=== PATIENT | female | born 1970 | race Caucasian/White ===

== ENCOUNTER 2021-11-10 18:42 | Emergency (ER) | payer BC ==
[2021-11-10 19:06] VITALS: BP 114/70; PULSE 73; RESP 16; TEMP 98.4
[2021-11-10] MEDS ORDERED: FLUORESCEIN STRIPS 1 MG STRIP RIGHT EYE ONE (20:51)
[2021-11-10] MEDS ORDERED: PROPARACAINE 0.5% OPHTH DROPS 15 ML BTL RIGHT EYE STA (20:51)
--- NOTE | 2021-11-10 20:53 | ED ---
General Adult HPI - General Chief complaint: Eye Problems Stated complaint: rt eye problem Time Seen by Provider: 11/10/21 20:06 Source: patient, RN notes reviewed Mode of arrival: ambulatory Limitations: no limitations - History of Present Illness Initial comments: 51-year-old female presents to the emergency department for evaluation of right eye pain. Patient states her grandson excellently poked her in the eye this afternoon. Reports the eye has been watering continuously and feels irritated like a grain of sand is trapped. Denies any blurry vision or change in vision. States she did not take anything for pain prior to arrival. Does not wear contacts. No other complaints at this time. - Related Data Previous Rx's Medication Instructions Recorded Erythromycin Ophth Oint [Romycin 1 applic RIGHT EYE QID 7 Days #1 gm 11/10/21 Ophth Oint] Allergies Allergy/AdvReac Type Severity Reaction Status Date / Time Sulfa (Sulfonamide Allergy Unknown Verified 11/10/21 19:06 Antibiotics) Review of Systems ROS Statement: Those systems with pertinent positive or pertinent negative responses have been documented in the HPI. ROS Other: All systems not noted in ROS Statement are negative. Past Medical History Past Medical History: No Reported History History of Any Multi-Drug Resistant Organisms: None Reported Past Surgical History: No Surgical Hx Reported Past Psychological History: No Psychological Hx Reported Smoking Status: Current every day smoker Past Alcohol Use History: None Reported Past Drug Use History: Marijuana General Exam Limitations: no limitations (Well-developed, well-nourished female in no acute distress. Initial temperature 98.4, pulse 73, respirations 16, blood pressure 114/70, pulse ox 98% on room air.) General appearance: alert, in no apparent distress Head exam: Present: atraumatic, normocephalic, normal inspection Eye exam: Present: PERRL, EOMI, conjunctival injection. Absent: scleral icterus, periorbital swelling, periorbital tenderness Expanded Eyelids: Normal Inspection: Bilateral Pupils: Regular, Round: Bilateral Sclera/Conjunctival: Normal Inspection: Bilateral Anterior chamber: Normal Inspection: Bilateral Posterior chamber: Deferred: Bilateral Visual acuity (R) = 20/: 40 Visual acuity (L) = 20/: 40 With correction: No IOP (R) in mmH IOP (L) in mmH IOP measured with: Tonopen ENT exam: Present: normal exam, normal oropharynx, mucous membranes moist Respiratory exam: Present: normal lung sounds bilaterally. Absent: respiratory distress, wheezes, rales, rhonchi, stridor, chest wall tenderness Cardiovascular Exam: Present: regular rate, normal rhythm, normal heart sounds. Absent: systolic murmur, diastolic murmur, rubs, gallop, clicks GI/Abdominal exam: Present: soft, normal bowel sounds. Absent: distended, tenderness, guarding, rebound, rigid Neurological exam: Present: alert, oriented X3, CN II-XII intact Psychiatric exam: Present: normal affect, normal mood Skin exam: Present: warm, dry, intact, normal color. Absent: rash Course Vital Signs 11/10/21 19:03 Temperature 98.4 F Pulse Rate 73 Respiratory 16 Rate Blood Pressure 114/70 O2 Sat by Pulse 98 Oximetry - Reevaluation(s) Reevaluation #1: 11/10/21 21:00 Alcaine instilled into right eye. Fluorescein stain applied. Small focal area of uptake was noted. Erythromycin eye ointment will be ordered and patient will be instructed to follow-up with ophthalmology for recheck. Medical Decision Making - Medical Decision Making 51-year-old female with no significant past medical history presents to the emergency department for evaluation of injury to the right eye. Upon exam, patient is well-appearing and in no acute distress. She does complain of right eye irritation with constant tearing. States she was poked in the eye by her son prior to arrival. Small corneal abrasion was identified using fluorescein stain and wood's lamp. IOP is within normal limits. Visual acuity is 20/40 bilaterally with no corrective lenses. Patient is not experiencing any vision changes. Erythromycin eye ointment was applied. Patient is instructed to follow up with ophthalmology for a recheck. Return parameters discussed in detail. Patient verbalizes understanding and agrees with this plan. Attending:Joyce. Disposition Clinical Impression: Corneal abrasion, right Disposition: HOME SELF-CARE Condition: Stable Instructions (If sedation given, give patient instructions): Corneal Abrasion (ED) Additional Instructions: Avoid rubbing your eyes. Wash your hands prior to applying eye ointment. Apply eye ointment 4-6 times daily for the next 7 days. May take Tylenol or Motrin if needed for pain or discomfort. Call the supervisor properties in the morning to schedule follow-up appointment for Monday or Monday. Return to the emergency department with any new, worsening, or concerning symptoms. Prescriptions: Erythromycin Ophth Oint [Romycin Ophth Oint] 1 applic RIGHT EYE QID 7 Days #1 gm Is patient prescribed a controlled substance at d/c from ED?: No Referrals: None,Stated [Primary Care Provider] - 1-2 days Lei Cheng MD [STAFF PHYSICIAN] - 1-2 days Srinivasan Richardson DO [Doctor of Osteopathic Medicine] - 1-2 days Time of Disposition: 21:35
[2021-11-10] MEDS ORDERED: ERYTHROMYCIN 5 MG/GM OPHTH OINT 3.5 GM TUBE RIGHT EYE STA (21:30)
== END 2021-11-10 21:46 | disposition home or self-care (01) ==
LOC: EC 18:42
DX: S05.01XA Injury of conjunctiva and corneal abrasion without foreign body, right eye, initial encounter (principal); F17.200 Nicotine dependence, unspecified, uncomplicated; Z88.2 Allergy status to sulfonamides; W51.XXXA Accidental striking against or bumped into by another person, initial encounter
CPT/HCPCS: 99283

== ENCOUNTER → 2024-08-02 | Outpatient (CLI) | payer BC ==
--- NOTE | 2024-08-02 12:30 | USB ---
Reason for Exam: Clinical finding. Risk Values: Naima 5 year model risk: 0.8%. NCI Lifetime model risk: 5.3%. Technique: Method: Whole Breast Handheld. Findings: The whole breast of the left breast, the area of palpable concern of the left breast, the axilla of the left breast and the retroareolar of the left breast were scanned. Electronically signed and approved by: Shubham Limon DO
--- NOTE | 2024-08-02 12:59 | P.GSCN ---
History of Present Illness Consult date: 08/02/24 Reason for Consult: mass left breast Requesting physician: Gurdeep Cormier III History of present illness: Krystina is a 54 year old female who is seen in consultation for Dr. Cormier regarding a left breast mass. She had a left breast lumpectomy in 2004 and then notes the lump returned in 2010. She states the lumpectomy in 2004 was non cancer. Her last mammogram was in 2004. She states that the lump is painful if anything touches it. It does not drain. Here in this area of she denies any fever or chills. She has not had any recent trauma or infection in her breast. She is seen with her finace. Caffeine: 4 shots espresso/day and coffee at night, also coke nicotine: 1 PPD for 40 years chocolate: daily BCP; for polycystic disease, used for about 4 years hormones: none Family History: maternal grandmother: lung cancer patient and sister: abnormal cervical cells had cryosurgery Hormonal History: menarche: 10 M2 age at first : 19, breat fed: no menopause: 53 Surgical history: cryo-ablation of cervix left breast lumpectomy done at [facility] Medical History: decreased hearing hypothyroid Social History: nicotine: a PPD alcohol: none drugs: marijuana daily Review of Systems - Constitutional Reports sweats - EENT Eyes: denies blurred vision Ears: left: decreased hearing Ears, nose, mouth and throat: Denies dysphagia - Breasts bilateral: as per HPI - Cardiovascular Denies chest pain, Denies shortness of breath - Respiratory Reports cough - Gastrointestinal Reports as per HPI - Genitourinary Genitourinary: Denies dysuria, Denies hematuria Menstruation: Reports postmenopausal - Musculoskeletal Reports as per HPI - Integumentary Integumentary Comment(s): itching inside left breast Denies rash, Denies unusual bruising - Neurological Denies headaches, Denies syncope - Psychiatric Reports anxiety - Endocrine Reports as per HPI, Reports weight change - Hematologic/Lymphatic Denies easy bleeding, Denies easy bruising - Allergic/Immunologic Reports as per HPI Past Medical History Past Medical History: No Reported History History of Any Multi-Drug Resistant Organisms: None Reported Past Surgical History: No Surgical Hx Reported Past Psychological History: No Psychological Hx Reported Smoking Status: Current every day smoker Past Alcohol Use History: None Reported Past Drug Use History: Marijuana Medications and Allergies Home Medications Medication Instructions Recorded Confirmed Type Erythromycin Ophth Oint [Romycin 1 applic RIGHT EYE QID 7 Days #1 gm 11/10/21 Rx Ophth Oint] Allergies Allergy/AdvReac Type Severity Reaction Status Date / Time Sulfa (Sulfonamide Allergy Unknown Verified 11/10/21 19:06 Antibiotics) Surgical - Exam - General moderate distress - Eyes normal ocular movement - Neck trachea midline - Respiratory normal respiratory effort, clear to auscultation - Cardiovascular Heart Sounds: normal: S1, S2 - Abdomen Abdomen: soft, non tender, no guarding, no rigid, no rebound - Integumentary normal turgor - Neurologic no disoriented, no combative - Musculoskeletal normal gait - Psychiatric oriented to time, oriented to person, oriented to place, speech is normal, memory intact Breast Exam: BRA: 36B Inspection: Mass left breast upper outer quadrant approximately 10 x 8 cm in size with some growth through the skin of the breast, bilateral grade 2 ptosis Palpation: Right breast: Multi positional exam no dominant masses or nodules of concern, right axilla: Shotty adenopathy nonworrisome Left breast: Multi positional exam mass left breast upper outer quadrant approximately 10 x 8 cm it is not fixed it is got some extension through the skin and may have some necrotic tissue associated with it is very firm Left axilla: Positive adenopathy but small and freely mobile Results Ultrasound performed personally reviewed of the left breast Assessment and Plan Assessment: Impression: Mass left breast Fibrocystic breast changes bilateral infected tumor vs. abscess Plan: Ultrasound-guided core biopsy lesion left breast Follow-up after ultrasound-guided core biopsy CC: Dr. Cormier
[2024-08-02 13:32] VITALS: BP 113/69; PULSE 73; RESP 17; TEMP 97.9
== END | disposition home or self-care (01) ==
LOC: RADUSWWP 11:55
PROVIDERS: ATTEND Surgery
DX: N60.11 Diffuse cystic mastopathy of right breast (principal); N60.12 Diffuse cystic mastopathy of left breast

== ENCOUNTER → 2024-08-08 | Day surgery (SDC) | payer BC ==
--- NOTE | 2024-08-16 12:01 | MM ---
Reason for Exam: Post Procedure Mammogram. Risk Values: Naima 5 year model risk: 0.8%. NCI Lifetime model risk: 5.3%. Tissue Density: Left: The breasts are heterogeneously dense, which may obscure small masses. Pathology Description: Location: 3 o'clock. Marker Left Behind. Needle Type: Celero Cores: 2 Gauge: 12 The very large lateral left breast mass is identified and targeted for biopsy. The mass could measure up to 8 to 9 cm. The procedure of ultrasound guided core biopsy was explained to the patient. Benefits, alternatives, and risks were discussed. An informed consent was then obtained. The patient was placed in supine positioning for imaging and for the procedure. The overlying skin was prepped and draped in usual sterile fashion. Lidocaine buffered with bicarbonate was used as anesthetic into the skin followed by lidocaine/epinephrine into the subcutaneous tissue up to area of concern in the left breast. Under ultrasound guidance, a 12-gauge vacuum assisted Celero biopsy device was used to obtain 2 core samples. Following this, a HydroMark coil clip was left in lesion. The patient tolerated the procedure well without any immediate complication. The patient was kept in the radiology department for short stay after the procedure and then discharged home in stable condition. Postprocedure mammogram: The patient was transferred to mammography for physician ordered post procedure mammogram for clip placement verification. Post procedure mammogram shows the large mass measuring up to 8 to 9 cm occupying the upper outer quadrant of the left breast with coil clip in the posteriorly and lateral aspect of the mass. IMPRESSION: Successful, uncomplicated ultrasound guided core biopsy of the very large BI-RADS 5 mass occupying the upper outer quadrant of the left breast; full pathology results to follow. [facility], , 08/08/2024 1:28 PM. Pathology Results: Result: Malignant, Invasive ductal carcinoma. Pathology and radiology were reviewed. Findings are concordant. LEFT BREAST, 1:00-3:00, ULTRASOUND GUIDED CORE BIOPSY: Invasive high grade ductal carcinoma (Grade 3). See Surgical Pathology Cancer Case Summary and comment. Overall Assessment: Malignant Assessment: MG diagnostic mammo LT wo CAD. - Left: Known biopsy proven malignancy, BI-RAD 6. Management: Surgical Consultation of the left breast. Electronically signed and approved by: Emily Gomez M.D. Radiologist
== END ==
LOC: RADUSWWP 12:01
PROVIDERS: ATTEND Surgery
DX: C50.212 Malignant neoplasm of upper-inner quadrant of left female breast (principal)
CPT/HCPCS: 88305; 88342; 88341; 77065; 19083; A4648

== ENCOUNTER → 2024-08-15 | Outpatient (CLI) | payer BC ==
[2024-08-15 15:57] VITALS: BP 127/82; PULSE 84; RESP 18; TEMP 98.2
--- NOTE | 2024-08-15 16:04 | P.PN ---
Subjective Progress Note Date: 08/15/24 Principal diagnosis: left bresat IDC IDC left breast Requesting physician: Gurdeep Cormier III History of present illness: Krystina is a 54 year old female who is seen in consultation for Dr. Cormier regarding a left breast mass. She had a left breast lumpectomy in 2004 and then notes the lump returned in 2010. She states the lumpectomy in 2004 was non cancer. Her last mammogram was in 2004. She states that the lump is painful if anything touches it. It does not drain. Here in this area of she denies any fever or chills. She has not had any recent trauma or infection in her breast. She underwent an ultrasound-guided core biopsy of the left breast on 08 08 24. 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 Caffeine: 4 shots espresso/day and coffee at night, also coke nicotine: 1 PPD for 40 years chocolate: daily BCP; for polycystic disease, used for about 4 years hormones: none Family History: maternal grandmother: lung cancer patient and sister: abnormal cervical cells had cryosurgery Hormonal History: menarche: 10 M2 age at first : 19, breat fed: no menopause: 53 Surgical history: cryo-ablation of cervix left breast lumpectomy done at [facility] Medical History: decreased hearing hypothyroid Social History: nicotine: a PPD alcohol: none drugs: marijuana daily Review of Systems - Constitutional Reports sweats - EENT Eyes: denies blurred vision Ears: left: decreased hearing Ears, nose, mouth and throat: Denies dysphagia - Breasts bilateral: as per HPI - Cardiovascular Denies chest pain, Denies shortness of breath - Respiratory Reports cough - Gastrointestinal Reports as per HPI - Genitourinary Genitourinary: Denies dysuria, Denies hematuria Menstruation: Reports postmenopausal - Musculoskeletal Reports as per HPI - Integumentary Integumentary Comment(s): itching inside left breast Denies rash, Denies unusual bruising - Neurological Denies headaches, Denies syncope - Psychiatric Reports anxiety - Endocrine Reports as per HPI, Reports weight change - Hematologic/Lymphatic Denies easy bleeding, Denies easy bruising - Allergic/Immunologic Reports as per HPI Past Medical History Past Medical History: No Reported History History of Any Multi-Drug Resistant Organisms: None Reported Past Surgical History: No Surgical Hx Reported Past Psychological History: No Psychological Hx Reported Smoking Status: Current every day smoker Past Alcohol Use History: None Reported Past Drug Use History: Marijuana Medications and Allergies Home Medications Medication Instructions Recorded Confirmed Type Erythromycin Ophth Oint [Romycin 1 applic RIGHT EYE QID 7 Days #1 gm 11/10/21 Rx Ophth Oint] Allergies Allergy/AdvReac Type Severity Reaction Status Date / Time Sulfa (Sulfonamide Allergy Unknown Verified 11/10/21 19:06 Antibiotics) Objective - Constitutional General appearance: Present: cooperative - EENT Eyes: Present: edentulous ENT: Present: hearing grossly normal - Neck Neck: Present: normal ROM - Respiratory Respiratory: bilateral: CTA - Cardiovascular Heart sounds: normal: S1, S2 - Integumentary Integumentary Comment(s): Biopsy site left breast clean and dry no evidence of infection or hematoma Integumentary: Present: normal turgor - Musculoskeletal Musculoskeletal: Present: gait normal - Psychiatric Psychiatric: Present: A&O x's 3, appropriate affect, intact judgment & insight Assessment and Plan Assessment: Impression: IDC left breast, locally advanced PET /CT Plan: appointment medical oncology present at tumor board metastatic work-up CC: Dr. Cormier
== END ==
LOC: WWCWWP 14:34
PROVIDERS: ATTEND Surgery
DX: D05.12 Intraductal carcinoma in situ of left breast (principal); F12.90 Cannabis use, unspecified, uncomplicated; Z88.2 Allergy status to sulfonamides

== ENCOUNTER → 2024-08-19 | Outpatient (CLI) | payer BC ==
--- NOTE | 2024-08-19 14:45 | MR ---
EXAMINATION TYPE: MR brain wo/w con DATE OF EXAM: 08/19/2024 COMPARISON: NONE HISTORY: Breast cancer TECHNIQUE: Multiplanar, multisequence images of the brain and brainstem is performed without and with IV contras t, utilizing 5.5 mL intravenous Gadobutrol . FINDINGS: Diffusion weighted images demonstrate no evidence of a recent infarct or other diffusion ab normality. The ventricular system and cisternal spaces are normal in size and appearance. The bra in volume is age appropriate. There are a few scattered tiny foci of T2 hyperintensity seen throughou t the white matter bilaterally. Approximately 13 scattered lesions are seen. Lesions are nonspecific in appearance and distribution. Findings likely on the basis of product of chronic small vessel ische sydnie change in patient of this age. Midline structures demonstrate normal morphology. The craniocervical junction appears within normal limits. Post contrast images demonstrate no abnormal enhancement. The dural venous sinuses appear pa tent. The visualized sinuses are clear and the globes are intact. Nasal septum slightly deviated to r ight of midline. IMPRESSION: No suspicious enhancing masses to suggest metastatic disease to the brain. [facility], , 08/19/2024 2:42 PM
== END | disposition home or self-care (01) ==
LOC: RADMRIMAIN 13:21
PROVIDERS: ATTEND Internal Medicine
DX: C50.412 Malignant neoplasm of upper-outer quadrant of left female breast (principal)
CPT/HCPCS: 70553; A9585

== ENCOUNTER → 2024-08-21 | Outpatient (CLI) | payer BC ==
--- NOTE | 2024-08-21 10:07 | CT ---
EXAMINATION TYPE: CT ChestAbdPelvis w con DATE OF EXAM: 08/21/2024 9:50 AM COMPARISON: 08/08/2024. Left breast biopsy. CLINICAL INDICATION: Female, 54 years old with history of C50.412 BREAST CANCER; PHH, C/O of lump on left breast. Hx of breast CA. Technique: CT ChestAbdPelvis w con; Multiple axial images were obtained. Two-dimensional coronal and sagittal reconstructions were obtained. Contrast used:100 ml mL of Isovue 300 with IV Contrast, (None if empty) Oral contrast used: with Oral Contrast CT DLP: 517.7 mGycm, Automated exposure control for dose reduction was used. Findings: CHEST: LUNGS/ PLEURA: No focal consolidation, pneumothorax or pleural effusion. AIRWAY: Patent and unremarkable. HEART: Size within normal limits. No significant coronary artery calcifications. MEDIASTINUM: No gross evidence of adenopathy. VASCULATURE: No aortic aneurysm. MUSCULOSKELETAL: No acute osseous abnormalities. SOFT TISSUES/LYMPH NODES: Enlarged lobulated heterogenous mass in the left chest measuring at least 7 .8 x 8.3 x 3.8 cm. Axillary lymph nodes appear within normal limits on CT criteria. This can be confi rmed with mammographic workup. LOWER NECK: No significant findings. ABDOMEN: ABDOMEN LIVER: Unremarkable GALLBLADDER AND BILE DUCTS: Unremarkable. PANCREAS: Unremarkable. SPLEEN: Unremarkable. ADRENAL GLANDS: Unremarkable. KIDNEYS AND URETERS: No evidence of hydronephrosis or renal calculus. The ureters are unremarkable. PELVIS BLADDER: Unremarkable REPRODUCTIVE: Unremarkable. ABDOMEN & PELVIS STOMACH AND BOWEL: No evidence of bowel obstruction. Appendix is normal. Oral contrast extends throughout the colon into the rectum. PERITONEUM/RETROPERITONEUM: No evidence of pneumoperitoneum or free fluid. VASCULATURE: No evidence of aortic aneurysm. Nodule-like area near the left renal artery thought to b e a dilated vein branching. Best appreciated on coronal imaging. MUSCULOSKELETAL: No acute osseous abnormalities LYMPH NODES: No gross evidence for lymphadenopathy. SOFT TISSUE/ABDOMINAL WALL: Unremarkable IMPRESSION: 1. Biopsy-proven left left breast large mass measuring up to 8.2 cm with skin thickening. No suspici ous lymph nodes are osseous lesions at this time. PET/CT recommended for confirmation. 2. No acute abdominal or thoracic process. 3. [facility], , 08/21/2024 10:04 AM
--- NOTE | 2024-08-21 13:14 | NM ---
EXAMINATION TYPE: NM bone scan whole body DATE OF EXAM: 08/21/2024 COMPARISON: NONE CLINICAL INDICATION: Female, 54 years old with history of C50.412 BREAST CANCER; Delayed whole-body scanning was performed following the injection of 20.2 mCi Tc 99m MDP. Images acq uired 4 hours post injection. FINDINGS: Homogeneous distribution of radiotracer throughout the axial and appendicular skeleton. Mild degenera tive uptake about the shoulders and sternoclavicular joints. IMPRESSION: No scintigraphic evidence to suggest metastatic disease at this time. [facility], , 08/21/2024 1:12 PM
== END | disposition home or self-care (01) ==
LOC: RADCTMAIN 07:57
PROVIDERS: ATTEND Internal Medicine
DX: Z03.89 Encounter for observation for other suspected diseases and conditions ruled out (principal); C50.412 Malignant neoplasm of upper-outer quadrant of left female breast; N63.20 Unspecified lump in the left breast, unspecified quadrant
CPT/HCPCS: 71260; 74177; 78306; A9503; Q9967

== ENCOUNTER → 2024-08-23 | Outpatient (CLI) | payer BC ==
--- NOTE | 2024-08-23 16:11 | CA ---
Transthoracic Echo Report Name: Krystina Dawn Age: 54 Gender: F : 1970 Exam Date: 08/23/2024 13:54 Exam Location: [place] [facility] Ht (in): 65 Wt (lb): 123 Ordering Physician: Jorge Yuan MD Attending/Referring Phys: Entertainment Centre Manager Kristen Trinidad RDCS Procedure CPT: Indications: Z01.818 ENCOUNTER FOR OTHER PREPROCEDURAL EXAMINAT Cardiac Hx: Technical Quality: Fair Contrast 1: Total Dose (mL): Contrast 2: Total Dose (mL): MEASUREMENTS (Male / Female) Normal Values 2D ECHO LV Diastolic Diameter PLAX 4.1 cm 4.2 - 5.9 / 3.9 - 5.3 cm LV Systolic Diameter PLAX 3.0 cm IVS Diastolic Thickness 0.8 cm 0.6 - 1.0 / 0.6 - 0.9 cm LVPW Diastolic Thickness 0.9 cm 0.6 - 1.0 / 0.6 - 0.9 cm LV Relative Wall Thickness 0.4 LV Diastolic Volume MOD BP 89.5 cm??? 67 - 155 / 56 - 104 cm??? LV Systolic Volume MOD BP 32.8 cm??? 22 - 58 / 19 - 49 cm??? LV Ejection Fraction MOD BP 63.4 % >= 55 % LV Cardiac Index MOD BP 2448.7 cm???/min???m??? LV Diastolic Volume MOD 4C 104.8 cm??? LV Systolic Volume MOD 4C 34.5 cm??? LV Ejection Fraction MOD 4C 67.0 % LV Cardiac Index MOD 4C 3033.3 cm???/min???m??? LV Diastolic Length 4C 8.3 cm LV Systolic Length 4C 6.1 cm LV Diastolic Volume MOD 2C 68.9 cm??? LV Systolic Volume MOD 2C 28.0 cm??? LV Ejection Fraction MOD 2C 59.4 % LV Cardiac Index MOD 2C 1765.8 cm???/min???m??? LV Diastolic Length 2C 7.5 cm LV Systolic Length 2C 5.5 cm LA Volume 39.4 cm??? 18 - 58 / 22 - 52 cm??? LA Volume Index 24.7 cm???/m??? 16 - 28 cm???/m??? M-MODE Aortic Root Diameter MM 2.6 cm LA Systolic Diameter MM 1.5 cm LA Ao Ratio MM 0.6 AV Cusp Separation MM 1.5 cm DOPPLER AV Peak Velocity 128.8 cm/s AV Peak Gradient 6.6 mmHg AV Mean Velocity 72.3 cm/s AV Mean Gradient 2.6 mmHg AV Velocity Time Integral 22.6 cm LVOT Peak Velocity 102.9 cm/s LVOT Peak Gradient 4.2 mmHg LVOT Velocity Time Integral 21.4 cm MV Area PHT 3.1 cm??? Mitral E Point Velocity 64.8 cm/s Mitral A Point Velocity 94.8 cm/s Mitral E to A Ratio 0.7 MV Deceleration Time 246.7 ms MV E' Velocity 8.0 cm/s Mitral E to MV E' Ratio 8.1 FINDINGS Left Ventricle Normal Left ventricular size, wall thickness, systolic function with no obvious regional wall motion abnormalities. Normal Left ventricular diastolic filling pattern. Left ventricular ejection fraction is estimated at 55-60 %. Normal strain noted. Right Ventricle Normal right ventricular size and function. Right ventricular systolic pressure within normal limits. Right Atrium Normal right atrial size. Left Atrium Normal left atrial size. Mitral Valve Structurally normal mitral valve. No mitral stenosis or prolapse. Trace to mild mitral regurgitation. Aortic Valve Trileaflet aortic valve. No aortic valve stenosis or regurgitation. Tricuspid Valve Structurally normal tricuspid valve. Mild tricuspid regurgitation. Pulmonic Valve Structurally normal pulmonic valve. Trace pulmonic regurgitation. Pericardium No pericardial effusion. Aorta Normal size aortic root and proximal ascending aorta. CONCLUSIONS Normal LV size and systolic function. Mild mitral and tricuspid insufficiency. No pulmonary hypertension. No pericardial effusion Previewed by: Dr. Moose Campos MD (Electronically Signed) Final Date: 23 August 2024 16:10
== END | disposition home or self-care (01) ==
LOC: RADECHMAIN 13:53
PROVIDERS: ATTEND Internal Medicine
DX: Z01.818 Encounter for other preprocedural examination (principal); I08.1 Rheumatic disorders of both mitral and tricuspid valves
CPT/HCPCS: 93306

== ENCOUNTER → 2024-09-06 | Outpatient (CLI) | payer BC ==
--- NOTE | 2024-09-19 09:34 | BMR ---
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 COMPARISON: PRIOR MRIs: None available. Correlation to mammograms: 08/10/2024. Correlation to ultrasound: 08/08/2024, 08/02/2024. CONTRAST: 5.5 cc Gadavist IV gadolinium contrast TECHNIQUE: Multiplanar multisequence MR imaging of both breasts was performed with a dedicated breast coil. Images were obtained before and after administration of IV gadolinium, using the standard breast mass protocol. Computer aided detection was utilized for interpretation. FINDINGS: LMP: Postmenopausal General breast composition: The breast is heterogeneously dense Background parenchymal enhancement: Minimal RIGHT BREAST: The T2 weighted series shows no areas of abnormal signal intensity. Review of the dynamic series shows no early or abnormal enhancement. LEFT BREAST: Large lobulated mass replacing the entire upper-outer quadrant and portion of the lower outer quadrant of the left breast middle to posterior depth estimating 9.5 x 6.8 X 4.8 cm with poor internal enhancement. This corresponds to site of previous biopsy. This mass abuts the pectoralis major muscle, however T1 images demonstrate preserved fat plane. There is no evidence of nipple extension. Mass extends through the dermis and invades the skin. LYMPH NODES: There is no evidence of internal mammary or axillary adenopathy. IMPRESSION: RIGHT BREAST: No MR evidence of malignancy. LEFT BREAST: 9.5 x 6.8 x 4.8 cm lobulated poorly enhancing mass in the lateral left breast consistent with known invasive malignancy. Extension to and through the skin. Mass abuts the pectoralis major muscle without MRI evidence of invasion. OVERALL ASSESSMENT -- BI-RADS 6: Known Biopsy proven Malignancy MTDD
== END | disposition home or self-care (01) ==
LOC: RADMRIMAIN 14:52
PROVIDERS: ATTEND Internal Medicine
DX: C50.412 Malignant neoplasm of upper-outer quadrant of left female breast (principal)
CPT/HCPCS: 77049; A9585

== ENCOUNTER → 2024-12-27 | Outpatient (CLI) | payer BC ==
[2024-12-27 14:52] VITALS: BP 132/81; PULSE 86; RESP 17; TEMP 99
--- NOTE | 2024-12-27 14:59 | P.PN ---
Subjective Progress Note Date: 12/27/24 Principal diagnosis: [id number] IDC Subjective Progress Note Date: 12-27-24 Principal diagnosis: left bresat IDC IDC left breast Requesting physician: Gurdeep Cormier III History of present illness: Krystina is a 54 year old female who was seen inconsultation on 08-15-[address] Cormier regarding a left breast mass. She had a left breast lumpectomy in 2004 and then notes the lump returned in 2010. She states the lumpectomy in 2004 was non cancer. Her last mammogram propr tp her consultation was in 2004. She states that the lump was painful if anything touched it. It does not drain. She denied any fever or chills. She had not had any recent trauma or infection in her breast. She underwent an ultrasound-guided core biopsy of the left breast on 08 08 24. This revealed invasive ductal carcinoma was grade 3 ER positive NV negative HER2 positive; tumor size approximately 7.4 cm The patient's case was presented at tumor board on 08 27 24. She has been s een by medical oncology and recommended to undergo neoadjuvant chemotherapy. Additionally a breast MRI is being ordered by them. Findings CT scans and bone scan on 08-21-2024 no evidence of metastatic disease Brain MRI on 08-19-2024 no evidence of mets She finished her chemotherapy last week. MRI of the breast performed on 09 06 24 revealed a 9.5 x 6.8 x 4.8 cm lobulated poorly enhancing mass in the lateral left breast consistent with known invasive malignancy extension to and through the skin was noted the mass abutted the pectoralis major muscle without MRI evidence of invasion Right breast no evidence of malignancy No evidence of internal mammary or axillary adenopathy Note medical oncology 08-29-2024 reviewed-secondary to negative metastatic workup recommended neoadjuvant TCHP every 3 weeks for 6 cycles she was scheduled to start first cycle and 09-02-2024 She is seen with her fiance. Caffeine: 4 shots espresso/day and coffee at night, also coke nicotine: 1 PPD for 40 years chocolate: daily BCP; for polycystic disease, used for about 4 years hormones: none Family History: maternal grandmother: lung cancer patient and sister: abnormal cervical cells had cryosurgery Hormonal History: menarche: 10 M2 age at first : 19, breat fed: no menopause: 53 Surgical history: cryo-ablation of cervix left breast lumpectomy done at [facility] Medical History: decreased hearing hypothyroid Social History: nicotine: a PPD alcohol: none drugs: marijuana daily Review of Systems - Constitutional Reports sweats - EENT Eyes: denies blurred vision Ears: left: decreased hearing Ears, nose, mouth and throat: Denies dysphagia - Breasts bilateral: as per HPI - Cardiovascular Denies chest pain, Denies shortness of breath - Respiratory Reports cough - Gastrointestinal Reports as per HPI - Genitourinary Genitourinary: Denies dysuria, Denies hematuria Menstruation: Reports postmenopausal - Musculoskeletal Reports as per HPI - Integumentary Integumentary Comment(s): itching inside left breast Denies rash, Denies unusual bruising - Neurological Denies headaches, Denies syncope - Psychiatric Reports anxiety - Endocrine Reports as per HPI, Reports weight change - Hematologic/Lymphatic Denies easy bleeding, Denies easy bruising - Allergic/Immunologic Reports as per HPI Past Medical History Past Medical History: No Reported History History of Any Multi-Drug Resistant Organisms: None Reported Past Surgical History: No Surgical Hx Reported Past Psychological History: No Psychological Hx Reported Smoking Status: Current every day smoker Past Alcohol Use History: None Reported Past Drug Use History: Marijuana Medications and Allergies Home Medications Medication Instructions Recorded Confirmed Type Erythromycin Ophth Oint [Romycin 1 applic RIGHT EYE QID 7 Days #1 gm 11/10/21 Rx Ophth Oint] Allergies Allergy/AdvReac Type Severity Reaction Status Date / Time Sulfa (Sulfonamide Allergy Unknown Verified 11/10/21 19:06 Antibiotics) Objective - Constitutional General appearance: Present: cooperative - EENT Eyes: Present: EOMI ENT: Present: hard of hearing - Neck Neck: Present: normal ROM - Respiratory Respiratory: bilateral: CTA - Cardiovascular Rhythm: regular Heart sounds: normal: S1, S2 - Integumentary Integumentary: Present: normal turgor - Musculoskeletal Musculoskeletal: Present: gait normal - Psychiatric Psychiatric: Present: A&O x's 3, appropriate affect, intact judgment & insight - Additional findings Additional findings: Breast Exam: BRA: 38B inspection: Skin changes left breast related to upper outer quadrant tumor Palpation: Right breast: Multi positional exam no dominant masses or nodules of concern Right axilla: No adenopathy of concern Left breast: Mass upper outer quadrant approximately 8 x 4 cm in size no other dominant masses or nodules of concern, this is freely mobile Left axilla: Shotty adenopathy Assessment and Plan Assessment: Impression: IDC left breast, locally advanced; completed neoadjuvant chemotherapy Plan: Secondary to the size of the tumor it is felt that the best surgical option would be left mastectomy with sentinel node biopsy possible axillary node dissection Preoperative clearance from Dr. Cormier Risk and benefits of the procedure discussed with the patient and her fianc. Risk include but are not limited to bleeding, infection, reaction to the anesthetic. They understand and wish to proceed. Risk of the sentinel node procedure/axillary not node dissection include but are not limited to decreased sensation to the upper arm, lymphedema, injury to the thoracodorsal or long thoracic nerves. Consent: I have discussed the risks, benefits and alternative therapies for the above-mentioned procedure and for both sedation/analgesia as well as necessary blood product administration, if indicated, as they pertain to this patient. The patient has indicated understanding and acceptance of the risks and procedures discussed. CC: Dr. Cormier
== END ==
LOC: WWCWWP 14:27
PROVIDERS: ATTEND Surgery
DX: Z01.818 Encounter for other preprocedural examination (principal); C50.912 Malignant neoplasm of unspecified site of left female breast; F12.90 Cannabis use, unspecified, uncomplicated; Z92.21 Personal history of antineoplastic chemotherapy; Z88.2 Allergy status to sulfonamides